=== PATIENT | male | born 1930 | race African-American/Black ===

== ENCOUNTER 2017-05-16 16:12 | Emergency (ER) | payer OTHER ==
[~2017-05-16] VITALS: Ht 180.3 cm; Wt 111.0 kg
[~2017-05-16 16:12] MED LIST: AMLODIPINE BESYL5 MG PO; COREG12.5 M1 PO; KLOR-CON 1010 ME1 PO; LASIX40 MG PO; LIPITOR40 MG PO; LYRICA50 MG PO; PLAVIX75 MG PO; PRINIVIL10 MG PO; TRADJENTA5 MG PO; XALATAN2.5 ML BOTH EYES
[2017-05-16 17:09] LABS: POINT-OF-CARE METER ID UU13113702
[2017-05-16 17:30] LABS: HEMATOCRIT 37.7 % (38.0-50.0); MCH 26.8 PG (29.0-34.0); MCHC 32.4 G/DL (30.0-36.0); MCV 82.9 FL (86-99); MEAN PLAT.VOLUME 9.6 uM^3 (9.0-12.4); PLATELET COUNT 188 K/uL (156-360); RBC DIS.WIDTH-CV 16.2 % (11.8-14.6); RBC DIS.WIDTH-SD 48.9 % (39-53); RED BLOOD COUNT 4.55 M/uL (4.00-5.50); WHITE BLOOD COUNT 5.8 K/uL (4.1-10.2)
[2017-05-16 17:42] LABS: CHLORIDE 110 mEq/L (99-109); POTASSIUM 3.2 mEq/L (3.7-5.4); SODIUM 142 mEq/L (136-147)
[2017-05-16 17:44] LABS: GLUCOSE 75 mg/dL (70-99)
[2017-05-16 17:45] LABS: ANION GAP 9 MEQ/L (2-14)
[2017-05-16 17:46] LABS: TOTAL BILIRUBIN 0.9 mg/dL (0.0-1.0)
[2017-05-16 17:48] LABS: ALKALINE PHOSPHATASE 67 IU/L (3-129); GFR ESTIMATE (CALCULATED) 57 mL/min/
[2017-05-16 17:49] LABS: UREA NITROGEN (BUN) 13 mg/dL (9-23)
[2017-05-16 17:51] LABS: LIPASE 9 U/L (1.0-51.0)
[2017-05-16 19:49] VITALS: BP 123/63
== END 2017-05-16 19:52 | disposition home or self-care (01) ==
LOC: EME 16:12
PROVIDERS: Emergency Medicine
DX: R19.7 Diarrhea, unspecified (principal); I10 Essential (primary) hypertension; E11.9 Type 2 diabetes mellitus without complications; E78.5 Hyperlipidemia, unspecified; Z89.612 Acquired absence of left leg above knee; Z79.02 Long term (current) use of antithrombotics/antiplatelets; Z79.84 Long term (current) use of oral hypoglycemic drugs; Z87.891 Personal history of nicotine dependence
CPT/HCPCS: 74000; 80053; 82948; 83605; 83690; 85027; 87493; 99281; 99285; J7030

== ENCOUNTER 2018-02-11 20:11 | Inpatient (IN) | payer OTHER ==
[~2018-02-11] VITALS: Ht 180.3 cm; Wt 104.0 kg
[2018-02-11 20:53] LABS: BASOPHIL (%) 0.4 % (0-1); BASOPHIL COUNT 0.1 K/uL (0-0.1); EOSINOPHIL (%) 0.5 % (0-5); EOSINOPHIL COUNT 0.1 K/uL (0-0.3); HEMATOCRIT 32.4 % (38.0-50.0); HEMOGLOBIN 10.6 G/DL (12.5-16.6); IMMATURE GRANULOCYTE (%) 0.3 % (0.0-0.7); LYMPHOCYTE (%) 14.4 % (15-42); LYMPHOCYTE COUNT 1.7 K/uL (1.0-2.8); MCH 28.2 PG (29.0-34.0); MCHC 32.7 G/DL (30.0-36.0); MCV 86.2 FL (86-99); MONOCYTE (%) 4.6 % (3-12); MONOCYTE COUNT 0.6 K/uL (0-0.8); NEUTROPHIL (%) 79.8 % (45-76); NEUTROPHIL COUNT 9.5 K/uL (1.8-6.4); PLATELET COUNT 199 K/uL (156-360); RBC DIS.WIDTH-CV 16.2 % (11.8-14.6); RBC DIS.WIDTH-SD 50.7 % (39-53); RED BLOOD COUNT 3.76 M/uL (4.00-5.50); WHITE BLOOD COUNT 11.9 K/uL (4.1-10.2)
[2018-02-11 21:01] LABS: ALBUMIN 3.3 g/dL (3.2-4.8); CHLORIDE 103 mEq/L (99-109); POTASSIUM 4.2 mEq/L (3.7-5.4); SODIUM 137 mEq/L (136-147)
[2018-02-11 21:02] LABS: MAGNESIUM 1.7 mg/dL (1.3-2.7)
[2018-02-11 21:03] LABS: GLUCOSE 217 mg/dL (70-99); TOTAL PROTEIN 6.3 g/dL (6.4-8.3)
[2018-02-11 21:05] LABS: TOTAL BILIRUBIN 0.9 mg/dL (0.0-1.0)
[2018-02-11 21:07] LABS: ALKALINE PHOSPHATASE 59 IU/L (3-129); CREATININE 2.1 mg/dL (0.6-1.3); GFR ESTIMATE (CALCULATED) 39 mL/min/ (58.99-99999)
[2018-02-11 21:08] LABS: UREA NITROGEN (BUN) 29 mg/dL (9-23)
[2018-02-11 21:09] LABS: AST (GOT) 12 IU/L (2-34)
[2018-02-11 21:10] LABS: ALT (GPT) 10 IU/L (3-49)
[2018-02-11 21:12] LABS: TROP-I INTERPRETATION NEGATIVE; TROPONIN-I 0.01 ng/mL (0.0-0.30)
[2018-02-11] MEDS ORDERED: KLOR-CON 1010 ME1 PO (21:36)
[2018-02-11] MEDS ORDERED: NOVOLOG PE100 UNITS/ SC (21:37)
[2018-02-11] MEDS ORDERED: LEVEMIR FL100 UNIT/1 SC ×2 (21:37→21:38)
[2018-02-11] MEDS ORDERED: CORICIDIN HBP1 EAC5 PO (21:38)
[2018-02-11] MEDS ORDERED: AMITRIPTYLINE H10 MG PO (21:39)
[2018-02-11] MEDS ORDERED: EARWAX TREATMEN15 M1 BOTH EARS (21:40)
[2018-02-11 22:30] LABS: INTER. NORMALIZED RATIO 1.3
[2018-02-11 22:32] LABS: PTT 31.5 SEC (25-37)
[2018-02-12] VITALS (7 sets, daily range): BP systolic 112–125; BP diastolic 56–83
[2018-02-12 06:27] LABS: CHLORIDE 111 MEQ/L (99-109); GFR ESTIMATE (CALCULATED) 57 mL/min/ (58.99-99999); GLUCOSE 130 mg/dL (70-99); POTASSIUM 4.1 MEQ/L (3.7-5.4); SODIUM 141 MEQ/L (136-147); UREA NITROGEN (BUN) 29 mg/dL (9-23)
[2018-02-12 06:29] LABS: CREATININE 1.5 MG/DL (0.6-1.3)
[2018-02-12 06:51] LABS: HEMOGLOBIN 9.6 G/DL (12.5-16.6); MCH 28.2 PG (29.0-34.0); MCHC 33.1 G/DL (30.0-36.0); RBC DIS.WIDTH-CV 16.2 % (11.8-14.6); RBC DIS.WIDTH-SD 49.9 % (39-53); RED BLOOD COUNT 3.41 M/uL (4.00-5.50); WHITE BLOOD COUNT 8.4 K/uL (4.1-10.2)
[2018-02-12 07:16] LABS: PLAT.SUFFICIENCY DECREASED; PLATELET COUNT 123 K/uL (156-360)
[2018-02-12 15:58] LABS: HEMOGLOBIN 7.8 G/DL (12.5-16.6); MCV 86.3 FL (86-99)
[2018-02-13] VITALS (14 sets, daily range): BP systolic 109–183; BP diastolic 56–76
[2018-02-13 06:06] LABS: HEMATOCRIT 23.7 % (38.0-50.0); HEMOGLOBIN 7.6 G/DL (12.5-16.6); MCHC 32.1 G/DL (30.0-36.0); MCV 87.5 FL (86-99); PLATELET COUNT 138 K/uL (156-360); RBC DIS.WIDTH-CV 16.4 % (11.8-14.6); RBC DIS.WIDTH-SD 52.2 % (39-53); WHITE BLOOD COUNT 5.9 K/uL (4.1-10.2)
[2018-02-13 06:10] LABS: RED BLOOD COUNT 2.71 M/uL (4.00-5.50)
[2018-02-13 06:34] LABS: CHLORIDE 116 MEQ/L (99-109); CREATININE 1.3 MG/DL (0.6-1.3); GFR ESTIMATE (CALCULATED) > 59 mL/min/ (58.99-99999); POTASSIUM 3.6 MEQ/L (3.7-5.4); SODIUM 145 MEQ/L (136-147); UREA NITROGEN (BUN) 18 mg/dL (9-23)
[2018-02-13 06:38] LABS: GLUCOSE 91 mg/dL (70-99)
[2018-02-14] VITALS (7 sets, daily range): BP systolic 124–170; BP diastolic 60–77
[2018-02-14 04:43] LABS: BASOPHIL (%) 0.7 % (0-1); BASOPHIL COUNT 0.1 K/uL (0-0.1); EOSINOPHIL (%) 6.1 % (0-5); EOSINOPHIL COUNT 0.4 K/uL (0-0.3); HEMATOCRIT 28.9 % (38.0-50.0); HEMOGLOBIN 9.4 G/DL (12.5-16.6); IMMATURE GRANULOCYTE (%) 0.3 % (0.0-0.7); LYMPHOCYTE (%) 24.2 % (15-42); LYMPHOCYTE COUNT 1.7 K/uL (1.0-2.8); MCH 28.3 PG (29.0-34.0); MCHC 32.5 G/DL (30.0-36.0); MONOCYTE (%) 8.8 % (3-12); MONOCYTE COUNT 0.6 K/uL (0-0.8); NEUTROPHIL (%) 59.9 % (45-76); NEUTROPHIL COUNT 4.1 K/uL (1.8-6.4); PLATELET COUNT 145 K/uL (156-360); RBC DIS.WIDTH-CV 15.9 % (11.8-14.6); RED BLOOD COUNT 3.32 M/uL (4.00-5.50); WHITE BLOOD COUNT 6.9 K/uL (4.1-10.2)
[2018-02-14 05:10] LABS: ALBUMIN 2.8 G/DL (3.2-4.8); ALKALINE PHOSPHATASE 39 IU/L (3-129); ALT (GPT) 9 IU/L (3-49); AST (GOT) 14 IU/L (2-34); CHLORIDE 114 MEQ/L (99-109); CREATININE 1.1 MG/DL (0.6-1.3); GFR ESTIMATE (CALCULATED) > 59 mL/min/ (58.99-99999); GLUCOSE 96 mg/dL (70-99); POTASSIUM 3.5 MEQ/L (3.7-5.4); SODIUM 143 MEQ/L (136-147); TOTAL BILIRUBIN 1.1 MG/DL (0.0-1.0); TOTAL PROTEIN 5.4 G/DL (6.4-8.3); UREA NITROGEN (BUN) 11 mg/dL (9-23)
[2018-02-15 04:02] VITALS: BP 136/60
[2018-02-15 07:31] LABS: BASOPHIL (%) 0.6 % (0-1); EOSINOPHIL (%) 5.7 % (0-5); EOSINOPHIL COUNT 0.4 K/uL (0-0.3); HEMATOCRIT 27.2 % (38.0-50.0); HEMOGLOBIN 8.8 G/DL (12.5-16.6); IMMATURE GRANULOCYTE (%) 0.4 % (0.0-0.7); LYMPHOCYTE (%) 22.2 % (15-42); LYMPHOCYTE COUNT 1.5 K/uL (1.0-2.8); MCH 28.2 PG (29.0-34.0); MCHC 32.4 G/DL (30.0-36.0); MCV 87.2 FL (86-99); MONOCYTE (%) 8.8 % (3-12); MONOCYTE COUNT 0.6 K/uL (0-0.8); NEUTROPHIL (%) 62.3 % (45-76); NEUTROPHIL COUNT 4.2 K/uL (1.8-6.4); PLATELET COUNT 146 K/uL (156-360); RBC DIS.WIDTH-CV 16.1 % (11.8-14.6); RBC DIS.WIDTH-SD 50.5 % (39-53); RED BLOOD COUNT 3.12 M/uL (4.00-5.50); WHITE BLOOD COUNT 6.8 K/uL (4.1-10.2)
[2018-02-15 07:49] VITALS: BP 137/63
[2018-02-15 08:14] LABS: ALBUMIN 2.9 G/DL (3.2-4.8); ALKALINE PHOSPHATASE 50 IU/L (3-129); ALT (GPT) 9 IU/L (3-49); AST (GOT) 13 IU/L (2-34); CHLORIDE 112 MEQ/L (99-109); CREATININE 1.2 MG/DL (0.6-1.3); GFR ESTIMATE (CALCULATED) > 59 mL/min/ (58.99-99999); GLUCOSE 129 mg/dL (70-99); SODIUM 144 MEQ/L (136-147); TOTAL BILIRUBIN 0.9 MG/DL (0.0-1.0); TOTAL PROTEIN 5.2 G/DL (6.4-8.3); UREA NITROGEN (BUN) 7 mg/dL (9-23)
[2018-02-15 10:30] LABS: HEMOGLOBIN A1c (GLYCOHEMOGLOB) 6.5 % (Below 5.7)
[2018-02-15 11:49] VITALS: BP 139/63
[2018-02-15 21:17] VITALS: BP 164/70
[2018-02-16 00:23] VITALS: BP 173/72
[2018-02-16 06:15] LABS: BASOPHIL (%) 0.5 % (0-1); EOSINOPHIL (%) 4.5 % (0-5); EOSINOPHIL COUNT 0.3 K/uL (0-0.3); HEMATOCRIT 25.8 % (38.0-50.0); HEMOGLOBIN 8.2 G/DL (12.5-16.6); IMMATURE GRANULOCYTE (%) 0.3 % (0.0-0.7); LYMPHOCYTE (%) 26.6 % (15-42); LYMPHOCYTE COUNT 1.7 K/uL (1.0-2.8); MCH 27.7 PG (29.0-34.0); MCHC 31.8 G/DL (30.0-36.0); MCV 87.2 FL (86-99); MONOCYTE (%) 8.6 % (3-12); MONOCYTE COUNT 0.6 K/uL (0-0.8); NEUTROPHIL (%) 59.5 % (45-76); NEUTROPHIL COUNT 3.8 K/uL (1.8-6.4); PLATELET COUNT 152 K/uL (156-360); RBC DIS.WIDTH-CV 16.1 % (11.8-14.6); RBC DIS.WIDTH-SD 50.6 % (39-53); RED BLOOD COUNT 2.96 M/uL (4.00-5.50); WHITE BLOOD COUNT 6.4 K/uL (4.1-10.2)
[2018-02-16 06:48] LABS: ALBUMIN 2.9 G/DL (3.2-4.8); ALKALINE PHOSPHATASE 45 IU/L (3-129); ALT (GPT) 9 IU/L (3-49); AST (GOT) 11 IU/L (2-34); CHLORIDE 110 MEQ/L (99-109); CREATININE 1.2 MG/DL (0.6-1.3); GFR ESTIMATE (CALCULATED) > 59 mL/min/ (58.99-99999); GLUCOSE 155 mg/dL (70-99); SODIUM 142 MEQ/L (136-147); TOTAL PROTEIN 5.2 G/DL (6.4-8.3); UREA NITROGEN (BUN) 9 mg/dL (9-23)
[2018-02-16 06:49] LABS: TOTAL BILIRUBIN 0.7 MG/DL (0.0-1.0)
[2018-02-16 07:43] VITALS: BP 167/75
[2018-02-16 16:39] VITALS: BP 160/72
[2018-02-17] VITALS: BP 177/74
[2018-02-17 06:00] LABS: BASOPHIL (%) 0.6 % (0-1); EOSINOPHIL (%) 4.6 % (0-5); EOSINOPHIL COUNT 0.3 K/uL (0-0.3); HEMATOCRIT 26.4 % (38.0-50.0); HEMOGLOBIN 8.5 G/DL (12.5-16.6); IMM.RETIC FRACTION 21.4 % (3-19); IMMATURE GRANULOCYTE (%) 0.6 % (0.0-0.7); LYMPHOCYTE (%) 23.3 % (15-42); LYMPHOCYTE COUNT 1.6 K/uL (1.0-2.8); MCHC 32.2 G/DL (30.0-36.0); MCV 86.8 FL (86-99); MONOCYTE (%) 8.5 % (3-12); MONOCYTE COUNT 0.6 K/uL (0-0.8); NEUTROPHIL (%) 62.4 % (45-76); NEUTROPHIL COUNT 4.2 K/uL (1.8-6.4); PLATELET COUNT 174 K/uL (156-360); RBC DIS.WIDTH-CV 16.3 % (11.8-14.6); RBC DIS.WIDTH-SD 50.8 % (39-53); RED BLOOD COUNT 3.04 M/uL (4.00-5.50); RETIC HGB EQUIVALENT 26.9 (28-36); RETICULOCYTE COUNT 3.7 % (0.5-1.8); WHITE BLOOD COUNT 6.7 K/uL (4.1-10.2)
[2018-02-17 06:37] LABS: CHLORIDE 107 MEQ/L (99-109); CREATININE 1.2 MG/DL (0.6-1.3); GFR ESTIMATE (CALCULATED) > 59 mL/min/ (58.99-99999); GLUCOSE 156 mg/dL (70-99); IRON 25 MCG/DL (35-150); POTASSIUM 4.2 MEQ/L (3.7-5.4); SODIUM 139 MEQ/L (136-147); TOTAL BILIRUBIN 0.7 MG/DL (0.0-1.0); UREA NITROGEN (BUN) 9 mg/dL (9-23)
[2018-02-17 07:39] LABS: FERRITIN 55 NG/ML (22-322)
[2018-02-17 07:45] LABS: FOLIC ACID (FOLATE) 10.2 NG/ML (5.0-22.0)
[2018-02-17 08:01] VITALS: BP 131/60; BP 143/87
[2018-02-17] MEDS ORDERED: SPIRIVA RESPIMAT4 GM IH (11:33)
[2018-02-17] MEDS ORDERED: DULERA 100 MCG/13 GM IH (11:33)
[2018-02-17] MEDS ORDERED: VENTOLIN HFA18 GM IH (11:34)
[2018-02-17] MEDS ORDERED: AMITIZA24 MICROGR PO (12:22)
== END 2018-02-17 17:42 | disposition home health service (06) | DRG 378 ==
LOC: EME → EDBD 20:11 → EME 20:11 → EDOF 23:25 → 5SOUTH 23:25 → ENRESERV 23:26 → EDOF 02-12 00:55 → 5SOUTH 02-12 00:56
PROVIDERS: Emergency Medicine; Family Medicine; Hospitalist
PROC: 30233N1 Transfusion of Nonautologous Red Blood Cells into Peripheral Vein, Percutaneous Approach (ICD-10-PCS; principal; 2018-02-13)
PROC: 0DJD8ZZ Inspection of Lower Intestinal Tract, Via Natural or Artificial Opening Endoscopic (ICD-10-PCS; 2018-02-14)
DX: K57.31 Diverticulosis of large intestine without perforation or abscess with bleeding (principal); D62 Acute posthemorrhagic anemia; D69.6 Thrombocytopenia, unspecified; N17.9 Acute kidney failure, unspecified; I95.9 Hypotension, unspecified; R09.02 Hypoxemia; I13.0 Hypertensive heart and chronic kidney disease with heart failure and stage 1 through stage 4 chronic kidney disease, or unspecified chronic kidney disease; I50.9 Heart failure, unspecified; E11.22 Type 2 diabetes mellitus with diabetic chronic kidney disease; N18.2 Chronic kidney disease, stage 2 (mild); E78.5 Hyperlipidemia, unspecified; I48.91 Unspecified atrial fibrillation; J44.9 Chronic obstructive pulmonary disease, unspecified; I25.10 Atherosclerotic heart disease of native coronary artery without angina pectoris; E66.9 Obesity, unspecified; E11.51 Type 2 diabetes mellitus with diabetic peripheral angiopathy without gangrene; R91.1 Solitary pulmonary nodule; Z79.4 Long term (current) use of insulin; Z89.612 Acquired absence of left leg above knee; Z79.02 Long term (current) use of antithrombotics/antiplatelets; Z87.891 Personal history of nicotine dependence; Z68.31 Body mass index [BMI] 31.0-31.9, adult
CPT/HCPCS: 71045; 71275; 74176; 80048; 80053; 82247; 82607; 82728; 82746; 82948; 83036; 83540; 83605; 83735; 83880; 84484; 85014; 85018; 85025; 85027; 85046; 85379; 85610; 85730; 86850; 86900; 86901; 86920; 93005; 94640; 94640 76; 94799; 99202; 99281; 99285; C1753; C9113; J1815; J1940; J3480; J7030; J7040; P9016; P9040